=== PATIENT | male | born 1940 | race Caucasian/White ===

== ENCOUNTER 2019-08-14 11:31 | Outpatient (CLI) | payer MEDICARE, BC ==
[2019-08-14 11:44] LABS: ALT (SGPT) 25 U/L (8-55); AST (SGOT) 11 U/L (5-34); Alkaline Phosphatase 102 U/L (40-110); Anion Gap 14 mmol/L (10-20); BUN (Urea Nitrogen) 16 mg/dL (8.4-25.7); Bilirubin, Total 0.5 mg/dL (0.2-1.2); Calc. Creatinine Clearance 0 mL/min (70-130); Calcium 8.8 mg/dL (7.8-10.44); Carbon Dioxide 25 mmol/L (23-31); Chloride 104 mmol/L (98-107); Estimated GFR-MDRD 75; Globulin 2.4 g/dL (2.4-3.5); Glucose 116 mg/dL (83-110); Potassium 4.2 mmol/L (3.5-5.1); Protein, Total 6.4 g/dL (5.8-8.1); Sodium 139 mmol/L (136-145)
[2019-08-14 11:47] LABS: Vancomycin, Trough 15.2 ug/mL
[2019-08-14 11:55] LABS: CRP (Inflammatory) 0.65 mg/dL (= or < 0.5)
[2019-08-14 11:57] LABS: #Basophils 0.1 thou/uL (0.0-0.2); #Eosinphils 0.5 thou/uL (0.0-0.7); #Lymphocytes 1.5 thou/uL (1.20-3.40); #Monocytes 0.6 thou/uL (0.11-0.59); #Neutrophils 5.3 thou/uL (1.40-6.50); %Eosinophils 6.5 % (0.0-10.0); %Lymphocytes 18.4 % (21.0-51.0); %Neutrophils 67.1 % (42.0-75.0); Hemoglobin 9.4 g/dL (14.0-18.0); Mean Corpuscular HGB CONC 29.4 g/dL (32.0-36.0); Mean Corpuscular Hemoglobin 26.9 pg (27.0-31.0); Mean Corpuscular Volume 91.5 fL (78.0-98.0); Mean Platelet Volume 5.6 fL (7.4-10.4); Platelet Count 322 thou/uL (130-400); RBC Distribution Width 14.2 % (11.5-14.5); White Blood Cell (WBC) Count 7.9 thou/uL (4.8-10.8)
[2019-08-14 12:14] LABS: Platelet Morphology Comment Appears Adequate; RBC Morphology Normal
== END 2019-08-14 11:32 | disposition home or self-care (01) ==
LOC: BURLAB 11:31
PROVIDERS: ATTEND Internal Medicine Infectious Disease
DX: T84.51XA Infection and inflammatory reaction due to internal right hip prosthesis, initial encounter (principal)
CPT/HCPCS: 80053; 80202; 85025; 85652; 86140

== ENCOUNTER 2019-08-21 10:59 | Outpatient (CLI) | payer MEDICARE, BC ==
[2019-08-21 11:04] LABS: Vancomycin, Trough 14.2 ug/mL
[2019-08-21 11:05] LABS: ALT (SGPT) 14 U/L (8-55); AST (SGOT) 12 U/L (5-34); Alkaline Phosphatase 106 U/L (40-110); Anion Gap 13 mmol/L (10-20); BUN (Urea Nitrogen) 18 mg/dL (8.4-25.7); Bilirubin, Total 0.4 mg/dL (0.2-1.2); CRP (Inflammatory) Less than 0.50 mg/dL (= or < 0.5); Calc. Creatinine Clearance 0 mL/min (70-130); Calcium 8.9 mg/dL (7.8-10.44); Carbon Dioxide 25 mmol/L (23-31); Chloride 104 mmol/L (98-107); Estimated GFR-MDRD 63; Globulin 2.3 g/dL (2.4-3.5); Glucose 95 mg/dL (83-110); Potassium 4.6 mmol/L (3.5-5.1); Protein, Total 6.3 g/dL (5.8-8.1); Sodium 137 mmol/L (136-145)
[2019-08-21 11:08] LABS: #Basophils 0.1 thou/uL (0.0-0.2); #Eosinphils 0.4 thou/uL (0.0-0.7); #Monocytes 0.8 thou/uL (0.11-0.59); #Neutrophils 4.4 thou/uL (1.40-6.50); %Basophils 1.7 % (0.0-1.0); %Eosinophils 5.4 % (0.0-10.0); %Lymphocytes 14.9 % (21.0-51.0); %Monocytes 11.9 % (0.0-10.0); %Neutrophils 66.2 % (42.0-75.0); Hemoglobin 9.8 g/dL (14.0-18.0); Mean Corpuscular HGB CONC 28.9 g/dL (32.0-36.0); Mean Corpuscular Hemoglobin 26.3 pg (27.0-31.0); Mean Corpuscular Volume 90.8 fL (78.0-98.0); Mean Platelet Volume 5.8 fL (7.4-10.4); Platelet Count 279 thou/uL (130-400); RBC Distribution Width 14.4 % (11.5-14.5); Red Blood Cell (RBC) Count 3.71 mill/uL (4.70-6.10); White Blood Cell (WBC) Count 6.7 thou/uL (4.8-10.8)
[2019-08-21 11:29] LABS: Platelet Morphology Comment Appears Adequate; RBC Morphology Normal
== END 2019-08-21 11:00 | disposition home or self-care (01) ==
LOC: BURLABSP 10:59
PROVIDERS: ATTEND Internal Medicine Infectious Disease
DX: T84.51XA Infection and inflammatory reaction due to internal right hip prosthesis, initial encounter (principal)
CPT/HCPCS: 80053; 80202; 85025; 85652; 86140

== ENCOUNTER 2019-08-28 11:18 | Outpatient (CLI) | payer MEDICARE, BC ==
[2019-08-28 11:36] LABS: Vancomycin, Trough 12.9 ug/mL
[2019-08-28 11:41] LABS: ALT (SGPT) 10 U/L (8-55); AST (SGOT) 11 U/L (5-34); Albumin 3.9 g/dL (3.4-4.8); Alkaline Phosphatase 94 U/L (40-110); Anion Gap 14 mmol/L (10-20); BUN (Urea Nitrogen) 15 mg/dL (8.4-25.7); Bilirubin, Total 0.3 mg/dL (0.2-1.2); CRP (Inflammatory) 4.32 mg/dL (= or < 0.5); Calc. Creatinine Clearance 0 mL/min (70-130); Calcium 8.9 mg/dL (7.8-10.44); Carbon Dioxide 25 mmol/L (23-31); Chloride 105 mmol/L (98-107); Globulin 2.3 g/dL (2.4-3.5); Glucose 84 mg/dL (83-110); Potassium 4.7 mmol/L (3.5-5.1); Protein, Total 6.2 g/dL (5.8-8.1); Sodium 139 mmol/L (136-145)
[2019-08-28 12:16] LABS: Hemoglobin 9.3 g/dL (14.0-18.0); Mean Corpuscular HGB CONC 29.1 g/dL (32.0-36.0); Mean Corpuscular Hemoglobin 25.4 pg (27.0-31.0); Mean Corpuscular Volume 87.5 fL (78.0-98.0); Mean Platelet Volume 6.3 fL (7.4-10.4); Platelet Count 224 thou/uL (130-400); RBC Distribution Width 14.8 % (11.5-14.5); Red Blood Cell (RBC) Count 3.66 mill/uL (4.70-6.10); White Blood Cell (WBC) Count 6.6 thou/uL (4.8-10.8)
[2019-08-28 13:00] LABS: Band 4 % (5-11); Eosinophils 5 % (0-10); Lymphocytes 24 % (21-51); MDiff Complete? YES; Monocytes 8 % (0-10); Neutrophil 59 % (42-75)
== END 2019-08-28 11:19 | disposition home or self-care (01) ==
LOC: BURLABSP 11:18
PROVIDERS: ATTEND Internal Medicine Infectious Disease
DX: T84.51XA Infection and inflammatory reaction due to internal right hip prosthesis, initial encounter (principal)
CPT/HCPCS: 80053; 80202; 85025; 86140

== ENCOUNTER → 2019-09-23 | Day surgery (SDC) | payer MEDICARE, BC ==
[~2019-09-23] MED LIST: Activase 2 MG VIAL ONE
[2019-09-23 13:43] VITALS: BP 180/97; TEMP 98.5
== END ==
LOC: BUR/OP 10:21
DX: T82.868A Thrombosis due to vascular prosthetic devices, implants and grafts, initial encounter (principal); T84.51XA Infection and inflammatory reaction due to internal right hip prosthesis, initial encounter
CPT/HCPCS: 96374; J2997